=== PATIENT | female | born 1995 | race Two or more races ===

== ENCOUNTER 2024-07-30 15:38 | Emergency (ER) | payer MEDICAID, SELFPAY ==
[2024-07-30 15:59] VITALS: BP 114/76; PULSE 86; RESP 16; TEMP 37.1; O2SAT 96; BMI 22.5
--- NOTE | 2024-07-30 16:24 | XR_ITS ---
EXAMINATION: CT cervical spine wo con, CT head/brain wo con ORDERING PROVIDER: Reynaldo StreetMEDICAL LABORATORY TECHNICAL OFFICER), MEDICAL LABORATORY TECHNICAL OFFICER HISTORY: trauma TECHNIQUE: CT was used in the volume metric, helical non-contrast imaging acquisition of the head and cervical spine with 2-D and 3-D reformats. Institutional dose reducing protocols were utilized. RADIATION DOSE: DLP 1157.5 mGy-cm COMPARISON: None. FINDINGS: HEAD: BRAIN: No acute intracranial hemorrhage, mass effect, or midline shift. HARRIS-WHITE DIFFERENTIATION: Preserved. EXTRA-AXIAL SPACES: No abnormal collection. SULCI: Normal. VENTRICLES: Normal. BASAL CISTERNS: Normal. VESSELS: No hyperdense vessel sign. DURAL VENOUS SINUSES: Symmetric attenuation. POSTERIOR FOSSA: Normal. MASTOID AIR CELLS: Clear. PARANASAL SINUSES: Small amount of fluid in the left maxillary sinus. Small bilateral maxillary sinus mucous retention cysts ORBITS: Normal. BONES: Normal. SCALP: Normal. C-SPINE: BONES: No fracture or focal lesion. JOINT/DISC SPACES: Within normal limits. ALIGNMENT: Straightening of the normal cervical lordotic curvature, with mild reversal centered at C4-C5. SOFT TISSUES: Unremarkable. No prevertebral swelling. OTHER: No significant. IMPRESSION: 1. No acute intracranial hemorrhage, mass effect, or midline shift. 2. No cervical spine fracture. 3. Straightening/mild reversal of normal cervical lordotic curvature which may be positional in the basis of muscle spasm. 4. Mild paranasal sinus inflammatory mucosal disease.
--- NOTE | 2024-07-30 16:24 | XR_ITS ---
EXAMINATION: XR elbow comp LT min 3V ORDERING PROVIDER: Reynaldo MCELROY), FABRIC DESIGNER HISTORY: trauma TECHNIQUE: 3 radiographs of the left elbow were obtained. COMPARISON: None. FINDINGS: BONES: No acute fracture or dislocation. ALIGNMENT: Normal. JOINTS: Normal. BONY MINERALIZATION: Normal. SOFT TISSUES: Normal. IMPRESSION: Normal.
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
[2024-07-30] MEDS: DIPHTH,PERTUSS(ACELL),TET VAC 0.5 ML SYR- ADULT IMi (17:38)
[2024-07-30] MEDS: ACETAMINOPHEN 500 MG TABLET 1000 MG PO (17:39)
== END 2024-07-30 17:48 | disposition home or self-care (01) ==
LOC: SERX 17:15
PROVIDERS: Emergency Provider Emergency Medicine
DX: M54.2 Cervicalgia (principal); S09.90XA Unspecified injury of head, initial encounter; S53.402A Unspecified sprain of left elbow, initial encounter; V19.00XA Pedal cycle driver injured in collision with unspecified motor vehicles in nontraffic accident, initial encounter; Y93.55 Activity, bike riding; Z23 Encounter for immunization
CPT/HCPCS: 70450; 72125; 73080; 90471; 90715; 99284; A4565; A9270

== ENCOUNTER 2025-05-07 20:09 | Emergency (ER) | payer MEDICAID, SELFPAY ==
[2025-05-07 20:12] VITALS: BMI 23.9
[2025-05-07 20:18] VITALS: BP 103/66; PULSE 104; RESP 19; TEMP 36.6; O2SAT 96
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
== END 2025-05-07 21:24 | disposition home or self-care (01) ==
LOC: SERX 21:12
PROVIDERS: Emergency Provider Emergency Medicine; PCP Family Medicine
DX: S01.511A Laceration without foreign body of lip, initial encounter (principal); S00.81XA Abrasion of other part of head, initial encounter; Y93.55 Activity, bike riding; V18.4XXA Pedal cycle driver injured in noncollision transport accident in traffic accident, initial encounter
CPT/HCPCS: 12013; 99281